=== PATIENT | female | born 1995 | race Two or more races ===

== ENCOUNTER 2022-09-25 14:07 | Inpatient (IN) | payer OTHER ==
[~2022-09-25] VITALS: Ht 162.6 cm; Wt 78.9 kg
[~2022-09-25 14:07] MED LIST: PRENA1 CHEW TA1.4 MG PO
[2022-09-28] MEDS ORDERED: IBU800 MG PO (10:29)
[2022-09-28] MEDS ORDERED: COLACE100 MG PO (10:29)
[2022-09-28] MEDS ORDERED: SIMETHICONE80 MG PO (10:29)
[2022-09-28] MEDS ORDERED: PERCOCET 5-3251 EACH PO (10:29)
== END 2022-09-28 14:01 | disposition home or self-care (01) | DRG 785 ==
LOC: OB/GYN 20:33 → LDR 20:33 → OB/GYN 20:45 → LDR 20:49 → O/R 21:13 → OB/GYN 09-26 00:57 → LDR 09-26 10:15 → OB/GYN 09-28 14:01
PROVIDERS: ADMIT Obstetrics & Gynecology; ATTEND Obstetrics & Gynecology
PROC: 0UB70ZZ Excision of Bilateral Fallopian Tubes, Open Approach (ICD-10-PCS; 2022-09-25)
PROC: 4A1HXCZ Monitoring of Products of Conception, Cardiac Rate, External Approach (ICD-10-PCS; 2022-09-25)
PROC: 10D00Z1 Extraction of Products of Conception, Low, Open Approach (ICD-10-PCS; principal; 2022-09-25 20:00)
DX: O34.211 Maternal care for low transverse scar from previous cesarean delivery (principal); Z3A.39 39 weeks gestation of pregnancy; Z37.0 Single live birth; Z20.822 Contact with and (suspected) exposure to COVID-19; Z30.2 Encounter for sterilization